=== PATIENT | male | born 1940 | race Caucasian/White ===

== ENCOUNTER → 2017-04-27 | Outpatient (CLI) | payer MEDICARE, OTHER ==
[~2017-04-27] MED LIST: AMLODIPINE BESY10 MG PO; ASPIRIN81 M2 PO; ATENOLOL50 MG PO; BAYER ASPIRIN325 M1 PO; BUMETANIDE2 M1 PO; BYSTOLIC5 MG PO; CLOPIDOGREL75 MG PO; DITROPAN XL PO; DYRENIUM100 MG PO; FENOFIBRATE145 M1 PO; FENOFIBRATE145 MG PO; FENOGLIDE40 MG PO; FLOMAX0.4 M1 PO; FLOMAX0.4 MG PO; FUROSEMIDE40 MG PO; INDOMETHACIN50 MG PO; LIPITOR40 MG PO; LOPID600 MG PO; NABUMETONE PO; NABUMETONE500 MG PO; PLENDIL PO
--- NOTE | ~2017-04-27 | MR18 ---
[facility] A Service of [facility] RADIOLOGY TEXT RESULTS PATIENT: YVONNE MCNULTY V LOCATION: [facility] : 40 UNIT #: [id number] AGE: [address]: Eze Wilks MD SEX: M ORDER DR: [id number] [facility] [address] [place], [place] [address] [id number] O MR#: [id number] Acc #: [id number] NAME: YVONNE MCNULTY : 1940 SEX: M STUDY DATE/TIME: 04/27/2017 10:01 UNIT: [facility] ROOM: STUDY DESCRIPTION: MR Brain Wo Contrast Attending Physician: Eze Wilks M.D. Referring Physician: Eze Wilks M.D. Ordering Physician: Eze Wilks M.D. Primary Care Physician: Deepak Rudd M.D. MRI CENTER REPORT This report is preliminary unless electronic signature is present. EXAM MRI brain without contrast HISTORY History of a stroke in 03/2016 with left hand and wrist numbness for the past 1 week. History of hypertension and diabetes. No history of cancer. 76-year-old male patient. TECHNIQUE MRI of the brain was performed without contrast using routine 1.5-T imaging technique. COMPARISON There is comparison study from 03/18/2016. FINDINGS There is no evidence for a recent ischemic insult on the diffusion series. Partly seen are degenerative changes in the visualized upper cervical spine. There is no Chiari-I malformation. There is mild generalized atrophy. There is no MRI evidence for recent intracranial hemorrhage. There are several punctate areas of susceptibility, consistent with old blood product or mineral deposition. These are in both the deep and superficial portions of the brain and could be related to hypertension history with less likely consideration being amyloid angiopathy. These were present previously. There is no extraaxial fluid collection. There is moderate white matter signal abnormality with involvement of subcortical deep and periventricular white matter. This is nonspecific but also likely due to small vessel disease. Patchy signal abnormality in the ratna, worse to the right side, likely due to small vessel disease. The major intracranial flow voids are maintained. Extensive chronic lacunar insults in the bilateral basal ganglia and thalami. On comparison to the previous study, the small vessel disease is not STS. [facility] A Service of [facility] RADIOLOGY TEXT RESULTS PATIENT: YVONNE MCNULTY V [facility] UNIT #: [id number] AGE: [address]: Eze Wilks MD SEX: M ORDER DR: appreciably changed, but the small changes might not be apparent, given the extent of involvement present. The major intracranial flow voids are maintained, though I suspect there is some stenosis of the right internal carotid artery at the base of the brain. This was present previously, and on review of the prior study, there was abnormal appearance and that time, as well. Please refer to the CT angiogram from 03/19/2016. There was a severe stenosis documented on that study within the supraclinoid internal carotid artery on the right. Please consider consultation with neuro interventional service or neurosurgical service to determine if the patient is a candidate for therapeutic intervention, is not already performed. The mastoid air cells are clear and there is only mild mucosal thickening in the paranasal sinuses with no air-fluid level where visualized. IMPRESSION 1. No evidence for a recent ischemic insult on the diffusion series. 2. Redemonstration of fairly extensive probable sequelae of small vessel disease. This is not appreciably changed from prior study of 03/18/2016. 3. 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 Flow void is still relatively attenuated when compared to the left side, and on review of the CT angiogram from 03/19/2016, there is a severe stenosis of the right-sided supraclinoid ICA at that time. If the patient has not been assessed by a neuro interventional service or neurosurgical service, this would be a suggested to determine if the patient is a candidate for interventional therapy. STAT * RESULT Dictated by... Kay Pham M.D. THIS IS AN ELECTRONICALLY VERIFIED REPORT Kay Pham M.D. at 04/27/2017 4:48 PM TRACEY/vishal TD: 04/27/2017 13:32 JOB #: [id number] MRI CENTER REPORT Page 1 of 1 COPY
== END | disposition home or self-care (01) ==
LOC: CMRI 08:59
DX: I67.2 Cerebral atherosclerosis (principal); I65.21 Occlusion and stenosis of right carotid artery; I66.9 Occlusion and stenosis of unspecified cerebral artery
CPT/HCPCS: 70551